=== PATIENT | male | born 1980 | race Caucasian/White ===

== ENCOUNTER 2020-11-26 13:16 | Emergency (ER) | payer SELFPAY | END 2020-11-26 18:05 | disposition home or self-care (01) | LOC: ER1 13:16 | DX: S00.93XA Contusion of unspecified part of head, initial encounter (principal); S40.012A Contusion of left shoulder, initial encounter; M79.605 Pain in left leg; W17.89XA Other fall from one level to another, initial encounter; Y92.828 Other wilderness area as the place of occurrence of the external cause | CPT/HCPCS: 70450; 73030; 73590; 99284 ==